=== PATIENT | male | born 1955 | race Two or more races ===

== ENCOUNTER 2024-07-05 13:37 | Emergency (ER) | payer MEDICARE ==
[~2024-07-05] VITALS: Ht 167.6 cm; Wt 79.5 kg
[2024-07-05 13:43] VITALS: BP 158/85; PULSE 87; RESP 18; TEMP 98.4; O2SAT 98
[2024-07-05] MEDS ORDERED: TAMS0.4C94 PO ×2 (13:45→17:17)
[2024-07-05 16:47] LABS: APPEARANCE,URINE TURBID (CLEAR); BILIRUBIN,URINE NEGATIVE (NEGATIVE); COLOR,URINE ORANGE (YELLOW); GLUCOSE, URINE (UA) NEGATIVE (NEGATIVE); KETONES,URINE TRACE mg/dL (NEGATIVE); LEUKOCYTE ESTERASE ,URINE LARGE (NEGATIVE); NITRATE,URINE NEGATIVE (NEGATIVE); OCCULT BLOOD,URINE LARGE (NEGATIVE); PROTEIN,URINE 100-200,SEE CONFIRM mg/dL (NEGATIVE); SPECIFIC GRAVITIY, URINE 1.028 (1.003-1.030); UROBILINOGEN,URINE <=1.0 mg/dL (<=1.0)
[2024-07-05 16:58] LABS: BACTERIA,URINE Few /HPF (None Seen); RBC,URINE >100 /HPF (0-2); SQUAMOUS EPITHELIAL CELL,UR Rare /LPF (None Seen); SULFOSALICYLIC ACID,URINE 3+ (Negative); WBC,URINE 26-50 /HPF (0-5)
[2024-07-05] MEDS ORDERED: CEPH-558 PO (17:17)
[2024-07-05] MEDS: CEPHALEXIN MONOHYDRATE 500 MG CAPSULE PO ONE (17:29)
== END 2024-07-05 17:46 | disposition home or self-care (01) ==
LOC: EMS 13:46
DX: N39.0 Urinary tract infection, site not specified (principal); N40.1 Benign prostatic hyperplasia with lower urinary tract symptoms; F12.90 Cannabis use, unspecified, uncomplicated; F17.210 Nicotine dependence, cigarettes, uncomplicated; Z46.6 Encounter for fitting and adjustment of urinary device; Z76.0 Encounter for issue of repeat prescription
CPT/HCPCS: 81001; 81002; 87077; 87086; 99283

== ENCOUNTER 2024-10-25 16:20 | Emergency (ER) | payer MEDICARE, OTHER ==
[~2024-10-25] VITALS: Ht 172.7 cm; Wt 70.5 kg
[~2024-10-25 16:20] MED LIST: CEPH-558 PO; TAMS0.4C94 PO
[2024-10-25 16:24] VITALS: TEMP 97.5
[2024-10-25 17:36] LABS: APPEARANCE,URINE CLEAR (CLEAR); BILIRUBIN,URINE NEGATIVE (NEGATIVE); COLOR,URINE LIGHT YELLOW (YELLOW); GLUCOSE, URINE (UA) NEGATIVE (NEGATIVE); KETONES,URINE NEGATIVE (NEGATIVE); LEUKOCYTE ESTERASE ,URINE MODERATE (NEGATIVE); OCCULT BLOOD,URINE LARGE (NEGATIVE); PH,URINE 5.5 (5.0-8.0); PROTEIN,URINE TRACE mg/dL (NEGATIVE); UROBILINOGEN,URINE <=1.0 mg/dL (<=1.0)
[2024-10-25 17:43] LABS: NITRATE,URINE NEGATIVE (NEGATIVE); RBC,URINE 51-100 /HPF (0-2); WBC,URINE 26-50 /HPF (0-5)
[2024-10-25 17:44] LABS: BACTERIA,URINE Few /HPF (None Seen); SQUAMOUS EPITHELIAL CELL,UR Few /LPF (None Seen)
[2024-10-25 18:57] VITALS: BP 145/98; PULSE 78; RESP 18; O2SAT 98
== END 2024-10-25 19:12 | disposition home or self-care (01) ==
LOC: EMS 16:20
DX: R33.9 Retention of urine, unspecified (principal); N40.1 Benign prostatic hyperplasia with lower urinary tract symptoms; F12.90 Cannabis use, unspecified, uncomplicated; F17.210 Nicotine dependence, cigarettes, uncomplicated; Z46.6 Encounter for fitting and adjustment of urinary device; Z79.899 Other long term (current) drug therapy
CPT/HCPCS: 51702; 81001; 87077; 87086; 87186; 99284; Z7502

== ENCOUNTER 2024-11-02 17:39 | Emergency (ER) | payer MEDICARE, OTHER ==
[~2024-11-02] VITALS: Ht 172.7 cm; Wt 70.0 kg
[2024-11-02 17:43] VITALS: BP 122/68; PULSE 85; RESP 18; TEMP 98.6; O2SAT 99
== END 2024-11-02 18:22 | disposition left against medical advice (07) ==
LOC: EMS 17:39
DX: R53.1 Weakness (principal); Z53.21 Procedure and treatment not carried out due to patient leaving prior to being seen by health care provider